=== PATIENT | male | born 1990 | race Caucasian/White ===

== ENCOUNTER 2017-12-16 02:48 | Emergency (ER) | payer BC | END 2017-12-16 06:37 | disposition home or self-care (01) | LOC: D.ER 02:48 | DX: J18.9 Pneumonia, unspecified organism (principal); J45.901 Unspecified asthma with (acute) exacerbation; R51 Headache; M54.2 Cervicalgia; R50.9 Fever, unspecified; J02.9 Acute pharyngitis, unspecified ==

== ENCOUNTER 2018-11-19 19:53 | Emergency (ER) | payer MEDICAID ==
[~2018-11-19] VITALS: Ht 182.9 cm; Wt 190.9 kg
[2018-11-19 19:55] VITALS: Ht 182.9 cm; Wt 190.9 kg
[2018-11-19] MEDS ORDERED: ADVAIR HFA [SP]12 GM (19:57)
[2018-11-19] MEDS ORDERED: ALBUTEROL SULF8.5 GM (19:57)
[2018-11-19] MEDS ORDERED: VOLTAREN75 MG PO (20:26)
[2018-11-19] MEDS ORDERED: KEFLEX500 MG PO (20:26)
[2018-11-19 21:30] VITALS: BP 151/104
== END 2018-11-19 21:30 | disposition home or self-care (01) ==
LOC: D.ER 19:53
DX: S61.217A Laceration without foreign body of left little finger without damage to nail, initial encounter (principal); W26.0XXA Contact with knife, initial encounter; Y93.89 Activity, other specified; Y92.019 Unspecified place in single-family (private) house as the place of occurrence of the external cause

== ENCOUNTER 2018-12-02 21:05 | Emergency (ER) | payer MEDICAID ==
[~2018-12-02] VITALS: Ht 182.9 cm; Wt 190.5 kg
[~2018-12-02 21:05] MED LIST: ADVAIR HFA [SP]12 GM; ALBUTEROL SULF8.5 GM; KEFLEX500 MG PO; VOLTAREN75 MG PO
[2018-12-02 21:10] VITALS: Ht 182.9 cm; Wt 190.5 kg
[2018-12-02 22:00] VITALS: BP 128/69
== END 2018-12-02 22:00 | disposition home or self-care (01) ==
LOC: D.ER 21:05
DX: S61.216D Laceration without foreign body of right little finger without damage to nail, subsequent encounter (principal); X58.XXXD Exposure to other specified factors, subsequent encounter; Z48.02 Encounter for removal of sutures

== ENCOUNTER 2019-04-03 14:53 | Emergency (ER) | payer MEDICAID ==
[2019-04-03 14:58] VITALS: BMI 57.1
[2019-04-03] MEDS ORDERED: ALBUTEROL SULF8.5 GM INH (15:03)
[2019-04-03] MEDS ORDERED: ADVAIR HFA 45/212 GM INH (15:03)
[2019-04-03] MEDS ORDERED: VIVANSE (15:03)
[2019-04-03] MEDS ORDERED: VOLTAREN75 MG PO (16:33)
[2019-04-03] MEDS ORDERED: TYLENOL W/CODEI1 TAB PO (16:33)
[2019-04-03 17:02] VITALS: BP 133/91
== END 2019-04-03 17:02 | disposition home or self-care (01) ==
LOC: D.ER 14:53
DX: S92.512A Displaced fracture of proximal phalanx of left lesser toe(s), initial encounter for closed fracture (principal); W18.30XA Fall on same level, unspecified, initial encounter; Y93.89 Activity, other specified; Y92.89 Other specified places as the place of occurrence of the external cause